=== PATIENT | male | born 1940 | race Caucasian/White ===

== ENCOUNTER 2021-11-05 09:24 | Emergency (ER) | payer OTHER ==
[2021-11-05] MEDS ORDERED: Sodium Chloride 0.9% 10 ML Syringe FLUSH PRN (10:29)
[2021-11-05] MEDS ORDERED: Lactated Ringers 1,000 ML IV ONE (10:29)
[2021-11-05 11:16] LABS: ESTIMATED GFR 33 mL/min (>60)
== END 2021-11-05 11:35 | disposition home or self-care (01) ==
LOC: JP.ED 09:24
DX: E11.649 Type 2 diabetes mellitus with hypoglycemia without coma (principal); I25.119 Atherosclerotic heart disease of native coronary artery with unspecified angina pectoris; I10 Essential (primary) hypertension; I25.2 Old myocardial infarction; Z79.4 Long term (current) use of insulin; Z87.891 Personal history of nicotine dependence; Z79.899 Other long term (current) drug therapy; Z95.1 Presence of aortocoronary bypass graft
CPT/HCPCS: 36415; 80053; 84484; 85025; 93005; 96360; 99285; J7120